=== PATIENT | female | born 1975 | race Caucasian/White ===

== ENCOUNTER 2022-03-12 11:05 | Day surgery (SDC) | payer BC ==
[~2022-03-12] VITALS: Ht 172.7 cm; Wt 84.7 kg
[2022-03-12 12:09] VITALS: BP 113/70; PULSE 54; TEMP 97.2
[2022-03-12] MEDS ORDERED: MOTRIN 600600 MG/TAB PO (16:03)
[2022-03-12] MEDS ORDERED: NORCO 325 MG-51 TAB PO (16:03)
[2022-03-12 17:10] VITALS: BP 125/70; PULSE 50; TEMP 97.7
--- NOTE | 2022-03-12 17:10 | NUR ---
Pt returned via cart to [facility]. A&O. VSS-documented. Spouse present upon return. Pt c/o pain 5/10 in right lower quadrant. Pt given warm blankets for abdomen. Given pain medication-see MAR, after pt able to take a couple bites of applesauce.
[2022-03-12 17:15] VITALS: BP 121/37; PULSE 55
--- NOTE | 2022-03-12 17:57 | NUR ---
Pt has tolerated apple sauce and water without n/v. Up to bathroom to void without difficulty. Pt reports feeling better and ready to go home. Instructed to go ahead and get dressed at this time. Pt with steady gait and spouse remains in room.
--- NOTE | 2022-03-12 17:59 | NUR ---
1710-pts abdomen noted to have x5 surgical incisions with adaptic medical glue dry and intact to each incision.
[2022-03-12 18:00] VITALS: BP 130/71; PULSE 64
[2022-03-12 18:08] VITALS: BP 125/70; PULSE 54; TEMP 97.7
--- NOTE | 2022-03-12 18:35 | NUR ---
Pts VS remain stable. Discharge teaching completed, pt and spouse verbalized understanding. IV removed and pressure dressing applied. Pt taken via wheelchair to private vehicle for dc home with spouse driving. Pt left with RX's sent to pharmacy of choice, F/U appt made and dc teaching packet.
== END 2022-03-12 18:35 | disposition home or self-care (01) ==
LOC: SDCO 11:05
DX: K80.10 Calculus of gallbladder with chronic cholecystitis without obstruction (principal); K85.10 Biliary acute pancreatitis without necrosis or infection; Z86.16 Personal history of COVID-19
CPT/HCPCS: J0690; J1100; J1885; J2270; J2405; J2704; J3010; J7120; Q9967